=== PATIENT | male | born 1985 | race Caucasian/White ===

== ENCOUNTER 2022-02-02 15:49 | Emergency (ER) | payer OTHER, SELFPAY ==
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
[2022-02-02 15:53] VITALS: BP 150/82; PULSE 92; RESP 18; TEMP 36.7; O2SAT 100
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
== END 2022-02-02 18:25 | disposition home or self-care (01) ==
LOC: ANHED 18:01
PROVIDERS: Emergency Provider Nurse Practitioner Family; PCP Family Medicine
DX: S16.1XXA Strain of muscle, fascia and tendon at neck level, initial encounter (principal); S39.012A Strain of muscle, fascia and tendon of lower back, initial encounter; Z90.49 Acquired absence of other specified parts of digestive tract; V43.52XA Car driver injured in collision with other type car in traffic accident, initial encounter
CPT/HCPCS: 72040; 72100; 99283

== ENCOUNTER 2025-01-21 11:59 | Outpatient (CLI) | payer OTHER, SELFPAY ==
--- NOTE | ~2025-01-21 | XR_ITS ---
Thoracic spine: Clinical Indication: Back pain AP and lateral views were performed. No fracture is seen. There is normal alignment of the vertebrae. The intervertebral disc spaces appe ar normal. Paravertebral soft tissues appear normal. Impression: No significant abnormalities noted. Reviewed, dictated and finalized at [facility]. Impression: No significant abnormalities noted.
== END 2025-01-21 12:00 | disposition home or self-care (01) ==
LOC: GOSHIMG 12:00
PROVIDERS: PCP Nurse Practitioner Family; Visit Provider Nurse Practitioner Family
DX: M54.9 Dorsalgia, unspecified (principal)
CPT/HCPCS: 72072

== ENCOUNTER 2025-07-31 19:38 | Emergency (ER) | payer OTHER, SELFPAY ==
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
--- OUTSIDE RECORDS SUMMARY | 2025-07-29 16:00 | XMS_ITS | Encounter Summary ---
Author Organization [facility] Healthcare Address [address] [place] [address] Care Team Providers Care Benefits Advisor Name Role Phone Mack Stein MD Primary Care Provider [phone] Louie Islas DPT Unavailable [phone] Reason for Referral * Consultation (Routine) - Authorized Specialty Diagnoses / Procedures Referred By Macey neal Referred To Contact Diagnoses Polyarthralgia Judie Stein MD PhD [address] [facility] [address] [place] [address] Phone: tel: fax: [facility] Medicine Pain Management [address] [place] [address] Phone: tel: fax: Referral ID Status Reason Start Date Expiration Date Visits Requested Visits Authorized [id number] Authorized Specialty Services Required 07/29/2025 01/28/2027 1 1 Question Answer Please select the performing region: [facility] (All Locations) [[id number]] Please select the performing department: [facility] [[id number]] # of visits: [address] Huerta * Diagnostic Imaging (Routine) - Pending Review Specialty Diagnoses / Procedures Referred By Macey t Referred To Contact Diagnoses Chronic pain of left knee Procedures Imaging Genicular Nerve Block (958[address]) Judie Stein MD PhD [address] [place] [address] Phone: tel: fax: [facility] [address] [facility] [place] [address] Referral ID Status Reason Start Date Expiration Date V isits Requested Visits Authorized [id number] Pending Review 07/29/2025 08/28/2026 1 1 Reason for Visit * Reason Comments Follow-up Generalized Body Aches Encounter Details Date Type Department Care Team (Late st Contact Info) Description 07/29/2025 4:00 PM CDT - 07/29/2025 11:59 PM CDT Hospital Encounter [facility] at the [facility] Advanced Medicine [address] [facility] [address] [place], [place] [id number] Judie Stein MD PhD [address] [place] [address] Chronic pain of left knee (Primary Dx); Polyarthralgia; Other chronic pain Discharge Disposition: Discharge to home or self care Social History Tobacco Use Types Packs/Day Years Used Date Smoking Tobacco: Never Passive Smoke Exposure: Past Smokeless Tobacco: Never Tobacco Cessation:Counseling Given: Not Answered Alcohol Use Standard Drinks/Week Comments Yes 0 (1 standard drink = 0.6 oz pur e alcohol) rarely Overall Financial Resource Strain (CARDIA) Answe r Date Recorded How hard is it for you to pa y for the very basics like food, housing, medical care, and heating? Patient declined 08/03/2020 Hunger Vital Sign Answer Date Recorded Within the past 12 months, y ou worried that your food would run out before you got the money to buy more. Never true 07/10/20 24 Within the past 12 months, t he food you bought just didn't last and you didn't have money to get more. Never true 07/10/2024 PRAPARE - Transportation Answer Date Re corded In the past 12 months, has l ack of transportation kept you from medical appointments or from getting medications? Patient declined 08/03/2020 In the past 12 months, has l ack of transportation kept you from meetings, work, or from getting things needed for daily living? Patient declined 08/03/2020 AUDIT-C Answer Date Recorded Q1: How often do you have a drink containing alc ohol? Monthly or less 07/29/2025 Q2: How many drinks containi ng alcohol do you have on a typical day when you are drinking? 1 or 2 07/29/2025 Q3: How often do you have si x or more drinks on one occasion? Never 07/29/2025 Personal Safety Answer Date Recorded Have you ever been in or are you currently in a harmful physical or emotional relationship or is someone making you feel afraid or unsafe? 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 Not on file Not on file Not on file documented as of this encounter Last Filed Vital Signs Vital Sign Reading Time Taken Comments Blood Pressure 118/79 07/29/2025 4:06 PM CDT 88 Pulse 91 07/29/2025 4:06 PM CDT Temperature 36.6 C (97.8 F) 07/29/2025 4:06 PM CDT Respiratory Rate 18 07/29/2025 4:06 PM CDT Oxygen Saturation 97% 07/29/2025 4:06 PM CDT ra Inhaled Oxygen Concentration - - Weight 88.5 kg (195 lb) 07/29/2025 4:06 PM CDT Height 188 cm (6' 2) 07/29/2025 4:06 PM CDT Body Mass Index 25.04 07/29/2025 4:06 PM CDT documented in this encounter Functional Status * AUDIT-C Score Answer Date of Assessment Author 1 07/29/2025 4:16 PM CDT Adry Peralta RN * Question Answer Date of Assessment Author Q1: How often do you have a drink containing alcohol? Monthly or less 07/29/2025 4:16 PM CDT Christy Peralta RN Q2: How many drinks containing alcohol do you have on a typical day when you are drinking? 1 or 2 07/29/2025 4:16 PM CDT Christy Peralta RN Q3: How often do you have six or more drinks on one occasion? Never 07/29/2025 4:16 PM CDT Christy Peralta RN documented as of this encounter Discharge Instructions * Patient Instructions* Estefany Mehta RN - 07/29/2025 4:00 PM CDT PAIN MANAGEMENT CENTER ([facility]) DISCHARGE INSTRUCTIONS MEDICATIONS: [x] Continue your current home medications Start: tramadol 50mg [x] Notify your pharmacy for refill(s) 7 days before you are out of your medication. [x] Opioid (Narcotic) Agreement signed and patient received copy. [x] Side Effects of Opioid Medications given to patient FOLLOW UP APPOINTMENTS: [x] Procedure at your next visit : left genicular nerve block INSTRUCTIONS before your next procedure: [x] See [facility] Pre-Procedure Information Sheet [x] Pre Procedure instructions will be sent through [employer] or by phone two working days prior to procedure. *Need help with [employer]? Call [phone]. Patient provided information and repeated back with understanding. If you need to reach us: For any questions about your procedure, please call the Pain Management Center [phone] (M-F) (8am-4pm) If you need urgent attention after 5 pm and weekends: Call the [facility] Mig Welder at [phone] and ask for the Pain Service doctor director of instruction. GENICULAR NERVE BLOCK PAIN MANAGEMENT CENTER PATIENT EDUCATION PRE-PROCEDURE INFORMATION SHEET What is a Genicular Nerve Block? A genicular nerve block is a diagnotic test. Nerve branches around you knee consist of 3 genicular nerves - Superior Medial, Superior Lateral and Inferior Medial. Numbing medicine is used to temporarily block the painful nerve signals in the knee. If you experience effective pain relief following the nerve block you may be a candidate for a Genicular Radiofrequency Ablation to treat your chronic knee pain due to osteoarthritis or pain after knee surgery. What should I do before my procedure? Let your doctor or nurse know if you are on any blood thinners (such as Aggrenox, Coumadin, Effient, Eliquis, Lovenox, Plavix, Pletal, Pradaxa,Ticlid or Xarelto). You may eat, drink and take your medications as usual. Bring someone with you to drive you home. An X-ray machine will be used during the procedure. Let your doctor or nurse know if there is any chance you may be . What should I expect during my procedure? Your procedure will be done on an x-ray table while you are awake. A geodetic technician will be taking x-rays. A nurse will monitor your blood pressure, breathing and heart rate. Your doctor will use a local anesthetic to numb the area. What should I expect after my procedure? A nurse will monitor you for a brief time in the recovery area. You may experience dizziness, numbness or weakness in you affected leg. These symptoms are the result of the numbing medicine and generally wears off in 6-8 hours and are almost always gone by the next morning. You may feel sore at the injection site. You will keep a pain diary for 8 hours and will be called the next business day for your pain diaryscores. Your doctor uses these scores to determine whether or not a Cooled Radiofrequency Ablation would possibly be helpful for you knee pain If you have any questions before your procedure, please call the Pain Management Center at and ask to speak to a nurse. * Attachments The following attachments cannot be sent through Care Everywhere. * Tramadol (By mouth) (Tajik) documented in this encounter Medications at Time of Discharge cefdinir (OMNICEF) 300 mg capsule Take 1 capsule (300 mg total) by mouth 2 (two) times a day 60 capsule 3 12/24/2024 colestipoL (COLESTID) 1 gram tabletIndications: Other ulcerative colitis with other complication Take 1-4 tablets by mouth 30 minutes before eating (with meals) and at bedtime. (Max 16 tablets/day). 1440 tablet 2 12/24/2024 diphenoxylate-atro pine (LOMOTIL) 2.5-0.025 mg per tabletIndications: diarrhea Take 1 tablet by mouth 4 (four) times a day as needed for diarrhea 120 tablet 5 04/10/2025 HYDROcodone-acetam inophen (NORCO) 5-325 mg per tabletIndications: Pain Take 1 tablet by mouth every 6 (six) hours as needed for pain for up to 10 doses 10 tablet 01/13/2025 ketorolac (TORADOL) 10 mg tablet Take 1 tablet (10 mg total) by mouth every 6 (six) hours as needed for pain 20 tablet 01/13/2025 polyethylene glycol 236-22.74-6.74 -5.86 gram solution 06/23/2025 pregabalin (LYRICA) 75 mg capsule Take 1 capsule (75 mg total) by mouth 2 (two) times a day 60 capsule 5 06/30/2025 traMADoL (ULTRAM) 50 mg tablet Take 1 tablet (50 mg total) by mouth every 6 (six) hours 120 tablet 07/29/2025 5 documented as of this encounter Ordered Prescriptions Prescription Sig Dispense Quantity Refills Last Filled Start Date End Date traMADoL (ULTRAM) 50 mg tablet Take 1 tablet (50 mg total) by mouth every 6 (six) hours 120 tablet 07/29/2025 08/28/2025 documented in this encounter Discharge Disposition Disposition Code Departure Means Destination Discharge to home or self care documented in this encounter Progress Notes * Judie Stein MD PhD - 07/29/2025 4:00 PM CDT Pain Management Progress Note Patient Name: Carlton Gallo : 1985 Today's Date: 07/29/2025 PCP: Mack Stein MD Referring: Leena Bergeron MD Chief Complaint Patient presents with Follow-up Generalized Body Aches INTERVAL HISTORY (07/29/2025): Mr. Carlton Gallo returns to care for follow-up of polyarthralgia. Last visit (09/24/24), we did the following: - Procedures: repeat L genicular NB - not approved by [facility] - Imaging: MRI L Knee - not seen Major events since last visit: multiple PT visits for polyarthralgia, minimal improvement. Recentlystarted pelvic floor PT. Pain remains in multiple joints, currently worst in the right wrist, left hip and knee. He is working out which sometimes helps and sometimes exacerbates it and makes him unable to do the things thathe needs to do to take care of his children. It remains overall the same pain that he has had for 15 years. He does not like taking medication but he is desperate. Has stopped taking prior meds because they were not helpful at all. He denies any side effects to current pain medications. He reports no new numbness, weakness, bowel/bladder incontinence except symptoms described above. Today, his pain assessment is as described below: Pain Assessment Pain Score: 6 Patient's Stated Pain Goal: 2 Pain Location: Generalized (worst pain is in right wrist and left hip and knee) Pain Radiating Towards: generalized joint pain Pain Descriptors: Aching, Throbbing, Sharp, Stabbing Pain Frequency: Constant/continuous Pain Onset: Ongoing Modified Oswestry Modified Oswestry Low Back Pain Score: 17 Percentage: 34 Patient History: HPI - HISTORICAL INFORMATION:(INITIAL VISIT 07/28/2021): Mr. Carlton Gallo was referred by Angelica Thornton* for consultation regarding treatment recommendations for management of multiple joint pain d/t avascular necrosis and migraine w/ hx of UC. Mr. Carlton Gallo is a 39 y.o. male with a PMH significant for ulcerative colitis who presents with chronic migraines and multiple joint pain d/t avascular necrosis (all joints, knees/hips/wrist more than others.) He states the pain started worsening since 2019. He states that the pain has been progressively worsening since then. Patient had a colectomy last year and thought that the pain would improve afterwards, but it did not.Currently, the pain is constant, throbbing, shooting, aching, tiring-exhausting and described as below. The pain increases with exercise, movement, lifting, bending, temperature change, and decreases with rest and medications. He rates his pain at 5/10 on average, ran ging from 4-8/10. He reports no new numbness, weakness, bowel/bladder incontinence. He cannot exercise and complete more physically active ADLs without difficulty due to increased pain. Patient's main goal is to be able to be physically active to interact and play with his young daughter. Patient does not want to take anymore steroids than he needs to. Therapeutic modalities to date include: medications Physical therapy: Yes, past - no improvement. Currently doing PT as of 08/25/22 Home exercise program: Yes, past - injured shoulder weight training and then stopped lifting weights due to COVID Injections: a couple years ago GH steroid injection L shoulder Surgery: No joint surgeries. Total colectomy Other: Last visit: INTERVAL HISTORY (09/24/2024): Mr. Carlton Gallo returns to care for follow-up of multiple joint pain. Last visit (07/10/24), we did the following: - Medications: LDN 4.5 - not helpful - Referrals: [facility] - evaluated yesterday for the first time, note not finished Hip has particularly been bothering him more in the past few weeks. Stretching is painful States that he was told one leg was longer and he received a lift for his left shoe. Also received an SI belt because pressure on hip more helpful. Of note, he mentions that the diagnostic genicular block basically eliminated the sharp knee pain that happens every time he steps and really limits his activity. He stated <80% relief only because it did not relieve the more general aching pain. He denies any side effects to current pain medications. He reports no new numbness, weakness, bowel/bladder incontinence except symptoms described above. Today, his pain assessment is as described below: Pain Assessment Pain Score: 5 - Moderate pain Pain Location: (knees, hips, wrist, left shoulder) Pain Radiating Towards: generalized joint pain Pain Descriptors: Aching Pain Frequency: Constant/continuous Pain Onset: Ongoing Pain Exacerbated by: walking, lifting Modified Oswestry Modified Oswestry Low Back Pain Score: 23 Percentage: 46 Current Pain Medications: Pain Medications gabapentin (NEURONTIN) 100 mg capsule Take 1 capsule (100 mg total) by mouth 3 (three) times a day for 7 days HYDROcodone-acetaminophen (NORCO) 5-325 mg per tablet Take 1 tablet by mouth every 6 (six) hours asneeded for pain for up to 10 doses ketorolac (TORADOL) 10 mg tablet Take 1 tablet (10 mg total) by mouth every 6 (six) hours as neededfor pain pregabalin (LYRICA) 75 mg capsule Take 1 capsule (75 mg total) by mouth 2 (two) times a day traMADoL (ULTRAM) 50 mg tablet Take 1 tablet (50 mg total) by mouth every 6 (six) hours Pain Medication History: Gabapentinoids Y Comments Anticonvulsants Y Comments Opioids Y Comments Gabapentin (Neurontin) [x] No help Carbamazepine (Tegretol) [] Tramadol (Ultram) [x] Helpful Pregabalin (Lyrica) [x] Not helping, stopped Oxcarbazepine (Trileptal) [] Tapentadol (Nucynta) [] TCA: Topiramate (Topamax) [] Buprenorphine (Belbuca, Butrans) [] Nortriptyline (Pamelor) [x] Just started 1 week prior to initial visit Lamotrigine (Lamictal) [] Oxycodone/APAP (Percocet) [] Amitriptyline (Elavil) [] Levetiracetam (Keppra) [] Hydrocodone/APAP (Nogales) [x] Helpful Desipramine (Norpramin) [] Valproate (Depakote) [] Codeine/APAP (Tylenol#3/4) [] Imipramine (Tofranil) [] Mexiletine (Mexitil) [] Methadone [] SNRI: Muscle Relaxants: Morphine (MSIR, MSER) [] Duloxetine (Cymbalta) [x] Rx for depression, unsure if helped at all Rx by GI 02/2024, 30 mg x1 week, then 60 mg daily Cyclobenzaprine (Flexeril) [x] No help NSAIDS: Venlafaxine (Effexor) [] Methocarbamol (Robaxin) [] Ibuprofen (Advil, Motrin) [x] Caused GI upset Milnacipran (Savella) [] Tizanidine (Zanaflex) [] Naproxen (Aleve) [x] Caused GI upset Others: Baclofen (Lioresal) [] Meloxicam (Mobic) [x] [x] Caused GI upset Acetaminophen (Tylenol) [x] No improvement Metaxalone (Skelaxin) [] Diclofenac (Voltaren) [] Low-dose naltrexone [x] Not helpful Carisoprodol (Soma) [] Indomethacin (Tivorbex) [] Topical lidocaine [] Diazepam (Valium) [x] No help Nabumetone (Relafen) [x] Caused GI upset Diclofenac gel (Voltaren) [] Etodolac (Lodine) [] Other [x] Budesonide Rizatriptan - helps with migraines Celecoxib (Celebrex) [x] No help PAIN MANAGEMENT PROCEDURE HISTORY: 09/01/2022: L genicular block (basically eliminated the sharp knee pain that happens every time he steps and really limits his activity) 10/20/2021: lidocaine infusion (no benefit) IMAGING/RESULTS: DEXA 02/01/2024: SUMMARY: Bone mineral density shows evidence of low bone mass (Z-score<-2.0). Of note, BMD alonedoes not define osteoporosis in a man under 50, but further evaluation is recommended. There has been no significant changes in bone density since previous measurement. The lumbar spine Trabecular Bone Score is 1.269 which suggests partially degraded bone microarchitecture compared to the general population. XR R foot 06/19/22: No acute osseous abnormality XR HIPS BILATERAL 3 OR 4 VIEWS W PELVIS 08/03/2020 HISTORY: Bilateral hip pain FINDINGS: 4 radiographs of bilateral hips and pelvis are submitted for interpretation with comparison made to radiographs dated 02/17/2013. There is serpiginous sclerosis within both femoral heads in keeping with avascular necrosis with mild articular surface collapse of the right femoral head. Alignment is normal. Joint spaces are maintained. No acute fracture. Suture material from bowel resection noted in pelvis. IMPRESSION: Avascular necrosis of both femoral heads with mild articular surface collapse on the right XR B knee 08/03/2020 IMPRESSION: 1. Avascular necrosis involving the right lateral femoral condyle and the left medial and lateral femoral condyles with new flattening of the articular surfaces 2. Large regions of avascular necrosis in the distal left femur and proximal left tibia, also seen on prior MRI 3. New nondisplaced osteochondral lesion of the left lateral femoral condyle, which can be further evaluated with MRI Past Surgical History: Procedure Laterality Date COLON SURGERY proctocolectomy + j-pouch ILEOSTOMY CLOSURE 2018 LAPAROSCOPIC ASSISSTED TOTAL COLECTOMY W/ J-POUCH 2018 3 stage Past Medical History: Diagnosis Date Anemia Anxiety and depression Autoimmune disease Avascular necrosis (HCC) Chronic left shoulder pain Migraines Peptic ulcer Ulcerative colitis, chronic (HCC) Current Outpatient Medications on File Prior to Encounter Medication Sig Dispense Refill cefdinir (OMNICEF) 300 mg capsule Take 1 capsule (300 mg total) by mouth 2 (two) times a day 60 capsule 3 colestipoL (COLESTID) 1 gram tablet Take 1-4 tablets by mouth 30 minutes before eating (with meals)and at bedtime. (Max 16 tablets/day). 1440 tablet 2 diphenoxylate-atropine (LOMOTIL) 2.5-0.025 mg per tablet Take 1 tablet by mouth 4 (four) times a day as needed for diarrhea 120 tablet 5 gabapentin (NEURONTIN) 100 mg capsule Take 1 capsule (100 mg total) by mouth 3 (three) times a day for 7 days (Patient not taking: Reported on 07/29/2025) 21 capsule 0 HYDROcodone-acetaminophen (NORCO) 5-325 mg per tablet Take 1 tablet by mouth every 6 (six) hours asneeded for pain for up to 10 doses (Patient not taking: Reported on 07/29/2025) 10 tablet 0 ketorolac (TORADOL) 10 mg tablet Take 1 tablet (10 mg total) by mouth every 6 (six) hours as neededfor pain (Patient not taking: Reported on 07/29/2025) 20 tablet 0 polyethylene glycol 236-22.74-6.74 -5.86 gram solution (Patient not taking: Reported on 07/29/2025) pregabalin (LYRICA) 75 mg capsule Take 1 capsule (75 mg total) by mouth 2 (two) times a day (Patient not taking: Reported on 07/29/2025) 60 capsule 5 No current facility-administered medications on file prior to encounter. Allergies Allergen Reactions Relafen [Nabumetone] Stomach upset Severe abdominal pain Social History Tobacco Use Smoking status: Never Passive exposure: Past Smokeless tobacco: Never Substance and Sexual Activity Drug use: Never Sexual activity: Defer Review of Systems REVIEW OF SYSTEMS: As per patient questionnaire and history above. Otherwise negative. Objective LABS: Lab Results Component Value Date WBC 7.5 11/30/2023 HGB 15.7 11/30/2023 HCT 45.0 11/30/2023 MCV 86.9 11/30/2023 LABPLAT 319 11/30/2023 Lab Results Component Value Date CREATININE 1.03 02/26/2024 CrCl cannot be calculated (Patient's most recent lab result is older than the maximum 90 days allowed.). PHYSICAL EXAM: Vitals BP 118/79 (BP Location: Right arm, Patient Position: Sitting) Pulse 91 Temp 97.8 ??F (36.6 ??C) (Temporal) Resp 18 Ht 188 cm (6' 2) Wt 88.5 kg (195 lb) SpO2 97% BMI 25.04 kg/m?? CONSTITUTIONAL: General appearance normal, nutrition normal, no deformities & good grooming. EYES: Normal conjunctivae/lids NECK:Normal inspection and palpation. CARDIOVASCULAR: No extremity edema or varicosities. RESPIRATORY:Normal effort CHEST:Symmetric. GASTROINTESTINAL: Normal abdomen SKIN: No rashes or lesions in the four extremities and back. PSYCHIATRIC: Oriented X3, memory intact, and alert. Normal mood and affect. Normal insight and judgement. NEUROLOGIC: CN III-XII grossly intact MUSCULOSKELETAL: Normal bulk and tone ASSESSMENT: The above note documents my personal evaluation of this patient. In addition, I have reviewed and confirmed with the patient and nurse the supportive information documented in today's scanned PatientHealth Questionnaire and Office Note. Encounter Diagnoses Name Primary? Chronic pain of left knee Yes Polyarthralgia Other chronic pain 40 y.o. with multiple joint pain and avascular necrosis / osteopenia secondary to chronic steroid use for ulcerative colitis. Left knee pain has been predominant, but genicular nerve RFA was not approved last year by his insurance. He also had some characteristics of centralized pain, but unfortunat breana failed a trial of LDN. He has also failed numerous neuropathic pain medications, muscle relaxants, cannot take NSAIDs, and GI meds are not helping with the pain. He has multiple areas of pain; the above listed are the worst but the generalized pain is also debilitating and on certain days will keep him from doing important tasks like taking care of his children. 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 He was able to walk much more quickly and comfortably after the genicular block (08/2022) without sharp pain. It has been 3 years since his diagnostic left genicular nerve block, and we will repeat. MULTIDISCIPLINARY PAIN MANAGEMENT PLAN: 1. Interventions: Given signs and symptoms of left genicular neuralgia, we will plan diagnostic left genicular nerve block at future visit. 2. Medications: Opioids: Tramadol 50mg QID PRN. Opioid contract and UDS today Adjuvants: No changes to current regimen. 3. Diagnostics: No further imaging needed at this current time. 4. Referral: No referrals needed at this time. PT: Multiple visits over the past year, including recently starting pelvic floor PT. OVN reviewed for today's encounter. Psychology: He saw Dr. Huerta in 2020. New referral placed today. 5. Follow-up: At the next possible visit for the procedure listed above. 6. Other: Discuss with occupational health - reasonable to get a scooter. Judie Stein MD PhD Water Treatment Specialist Department of Anesthesiology, Division of Pain Management [facility], [facility] 07/29/2025 Orders Placed This Encounter Procedures Imaging Genicular Nerve Block (81078) Pain Management Profile Drugs of Abuse Screen, Urine with Reflex Confirmation Targeted Opioid Screen, Ur Ambulatory referral to Psychology documented in this encounter Nursing Notes * Estefany Mehta, RN - 07/29/2025 4:00 PM CDT Level 4 Escorted patient to exam room. Obtained vital signs. Reviewed patient's allergies and current medications. Obtained and verified patient's complex medical/surgical history. Confirmed the reason for visit with the patient. Obtained the following screening assessments: [x] Modified Oswestry Low Back Pain Questionnaire [] PMC Intake Questionnaire [x] PMC Follow up Questionnaire [] Fall Risk Assessment ([place]) [] Depression/Anxiety Assessment (GAD7, PHQ-9, [place] Suicide, [place] Depression) [] Disability Scale [] CAGE [] SOAPP-R Additional tasks included: [] Random medication adherence check (pill verification by two nurses) [] Work/school note written [] Wound/skin check/dressing change [] Pain assessment for more than one site [] Coordination of a specialty referral or imaging study (stat MRI for same day) [] Anticoagulant therapy coordination on day of visit [] Monitoring or assistance in patient physical exam or assessment [] Expanded evaluation and/or monitoring of vital signs [] Coordination of multiple or complex referrals or imaging studies [] Administration of medication by the clinical staff [x] Specimen/lab preparation and collection (urine drug screen) [x] Discharge Education Provided Vital Signs Temp: 97.8 ??F (36.6 ??C) Temp src: Temporal Pulse: 91 Resp: 18 BP: 118/79 (88) BP Location: Right arm Patient Position: Sitting SpO2: 97 % (ra) Post-visit transport confirmed with the patient. Total time spent for patient care, education, and care coordination was approximately 31-40 minutes. * Estefany Mehta RN - 07/29/2025 4:00 PM CDT 07/29/25 5:09 PM Urine Drug Screen obtained: [x] [facility] lab Name and verified. OA signed and copy offered to patient. documented in this encounter Plan of Treatment Scheduled Orders Name Type Priority Associated Diagnoses Orde r Schedule Imaging Genicular Nerve Block (69474) Imaging Schedule Routine, Read Routine (OP Routine) Chronic pain of left knee Expected: 07/29/2025, Expires: 07/29/2026 Pain Management Profile Lab Routine Other chronic pain Expected: 07/29/2025, Expires: 07/29/2026 Scheduled Referrals Name Type Priority Associated Diagnoses Order Schedule Ambulatory referral to Psychology Outpatient Referral Routine Polyarthralgia Expected: 08/12/2025 (Approximate), Expires: 07/29/2026 documented as of this encounter Goals Goal Patient Goal Type Associated Problems Recent Progress Patient-Stated? Author CCM Chronic Pain Care Plan Chronic Care Management No change(07/29 4:15 PM CDT) No Yocasta Simons NP Note: Problem: Chronic Pain Goals: 1. Minimize further functional decline 2. Maximize quality of life 3. Control pain Strategies: - Activity/exercise program recommendation - Conservative stepwise pain medicine strategy with multi-disciplinary approach - Recommend healthy lifestyle strategies and compensatory methods as needed documented as of this encounter Procedures Procedure Name Priority Date/Time Associated Diagnosis Comments TARGET OPIOID SCREEN BY PRIVACY SPECIALIST Routine 07/29/2025 5:15 PM CDT DRUGS OF ABUSE SCREEN, URINE WITH REFLEX CONFIRMATION Routine 07/29/2025 5:15 PM CDT documented in this encounter Results * Targeted Opioid Screen, Ur (07/29/2025 5:15 PM CDT) [facility] Pain mgt 6-Acetylmorphine, Ur Not Detected CutOff 10 ng/mL Pain mgt Buprenorphine, Ur Not Detected CutOff 5 ng/mL [facility] Pain mgt Buprenorphine metabolite (Norbuprenorphine), Ur Not Detected CutOff 5 ng/mL [facility] Pain mgt Codeine, Ur Not Detected CutOff 25 ng/mL [facility] Pain mgt Hydrocodone, Ur Not Detected CutOff 25 ng/mL [facility] Pain mgt Hydromorphone, Ur Not Detected CutOff 25 ng/mL [facility] Pain mgt Methadone, Ur Not Detected CutOff 25 ng/mL [facility] Pain mgt Methadone Metabolite (EDDP), Ur Not Detected CutOff 25 ng/mL [facility] Pain mgt Morphine, Ur Not Detected CutOff 25 ng/mL [facility] Pain mgt Oxycodone, Ur Not Detected CutOff 25 ng/mL [facility] Pain mgt Oxymorphone, Ur Not Detected CutOff 25 ng/mL [facility] Pain mgt Tapentadol, Ur Not Detected CutOff 25 ng/mL [facility] Pain mgt Tramadol, Ur Not Detected CutOff 25 ng/mL [facility] Pain mgt Tramadol metabolite (O-desmethyltramado l), Ur Not Detected CutOff 25 ng/mL [facility] Comment: Interpretive Data This test only detects free, unconjugated drugs. The absence of expected drug(s) and/or metabolite(s) may indicate non-compliance, inappropriate timing of specimen collection relative to the time of dosing, variability in absorption, diluted or adulterated urine, or other testing limitations. Questions concerning interpretation should be directed to the laboratory. The results of this test are to be used only for medical purposes and are not suitable for forensic use. This test was developed and its performance characteristics determined by [facility]. It has not been cleared or approved by the U.S. Food and Drug Administration. Current interpretive data was last revised 19. Pain mgt Naloxone, ur Not Detected cutoff 20 ng/ml [facility] Urine 07/29/2025 5:15 PM CDT 07/29/2025 7:32 PM CDT Judie Stein MD PhD LAB URINE ORDERABLES F inal Result [facility] [address] [facility] [place] [address] * Drugs of Abuse Screen, Urine with Reflex Confirmation (07/29/2025 5:15 PM CDT) Pathologist [facility] Amphetamine, ur Not Detected CutOff 500ng/mL Comment: Interpretive Data - Amphetamines: Samples containing greater than 500 ng/mL d-methamphetamine or other cross-reacting amphetamine compounds are reported as positive. Amphetamine immunoassays are subject to significant false positive rates due to cross-reactivity of non-amphetamine drugs. Confirmatory testing required for definitive results. Current Interpretive Data was last reviewed 2023. Barbiturates, ur Not Detected CutOff 200ng/mL [facility] Comment: Interpretive Data - Barbiturates: Samples containing greater than 200 ng/mL secobarbital or other cross-reacting barbiturate compounds are reported as positive. False positive and false negative results are possible. Confirmatory testing required for definitive results. Current Interpretive Data was last reviewed 2023. Benzodiazepines, ur Not Detected CutOff 100ng/mL [facility] Comment: Interpretive Data - Benzodiazepines: Samples containing greater than 100 ng/mL nordiazepam or other cross-reacting compounds are reported as positive. False positive and false negative results are possible. Confirmatory testing required for definitive results. Current Interpretive Data was last reviewed 2023. Cannabinoids, ur Not Detected CutOff 50 ng/mL [facility] Comment: Interpretive Data - Cannabinoids: Samples containing greater than 50 ng/mL delta-9 THC -COOH or other cross- reacting compounds are reported as positive. False positive and false negative results are possible. Confirmatory testing required for definitive results. Current Interpretive Data was last reviewed 2023. Cocaine, ur Not Detected CutOff 150ng/mL [facility] Comment: Interpretive Data - Cocaine: Samples containing greater than 150 ng/mL benzoylecgonine or other cross- reacting compounds are reported as positive. False positive and false negative results are possible. Confirmatory testing required for definitive results. Current Interpretive Data was last reviewed 2023. Fentanyl, Ur Not Detected CutOff 5 ng/mL [facility] Comment: Interpretive Data - Fentanyl: Samples containing greater than 5 ng/mL norfentanyl, fentanyl, or other cross-reacting fentanyl compounds are reported as positive. False positive and false negative results are possible. Confirmatory testing required for definitive results. Current Interpretive Data was last reviewed 2024. Methadone, ur Not Detected CutOff 300ng/mL [facility] Comment: Interpretive Data - Methadone: Samples containing greater than 300 ng/mL d,l-methadone or other cross-reacting compounds are reported as positive. False positive and false negative results are possible. Confirmatory testing required for definitive results. Current Interpretive Data was last reviewed 2023. Opiates, ur Not Detected CutOff 300ng/mL [facility] Comment: Interpretive Data - Opiates: Samples containing greater than 300 ng/mL morphine or other cross-reacting compounds are reported as positive. False positive and false negative results are possible. Confirmatory testing required for definitive results. Current Interpretive Data was last reviewed 2023. Oxycodone, ur Not Detected CutOff 100ng/mL [facility] Comment: Interpretive Data - Oxycodone: Samples containing greater than 100 ng/mL oxycodone or other cross-reacting compounds are reported as positive. False positive and false negative results are possible. Confirmatory testing required for definitive results. Current Interpretive Data was last reviewed 2023. Phencyclidine, ur Not Detected CutOff 25 ng/mL [facility] Comment: Interpretive Data - Phencyclidine: Samples containing greater than 25 ng/mL phencyclidine or other cross-reacting compounds are reported as positive. False positive and false negative results are possible. Confirmatory testing required for definitive results. Current Interpretive Data was last reviewed 2023. Urine Creatinine 142 mg/dL [facility] Comment: Interpretive Data Urine Creatinine: < 10 mg/dL is extremely dilute = or > 10 but < 20 mg/dL is dilute = or > 20 mg/dL is normal Current Interpretive Data was last revised on 2018. Urine 07/29/2025 5:15 PM CDT 07/29/2025 7:32 PM CDT Narrative [facility] - 07/29/2025 8:38 PM CDT Drug Screening is performed by immunoassay for medical purposes. If positive, confirmation testing will be performed for amphetamines, benzodiazepines, cocaine, fentanyl, methadone, opiates, oxycodone, and phencyclidine. Judie Stein MD PhD LAB URINE ORDERABLES F inal Result [facility] Department [place] [address] documented in this encounter Visit Diagnoses Diagnosis Chronic pain of left knee- Primary Polyarthralgia Pain in joint, multiple sites Other chronic pain documented in this encounter Care Teams Benefits Advisor Relationship Specialty Start Date End Date Mack Stein MD PCP - General 01/18/12 Louie Islas, MAYO [address] [facility] [address] [place] [address] Physical Therapist Physical Therapy 04/28/22 documented as of this encounter
--- NOTE | ~2025-07-31 | XR_ITS ---
XR hand LT min 3V 07/31/2025 20:44 INDICATION: Left hand pain. Laceration to finger. PROCEDURE: 3 views left hand COMPARISON: No prior studies for comparison. FINDINGS: Fracture, dislocation or subluxation is not identified. The soft tissues appear within normal limits. No foreign bodies are identified. IMPRESSION: 1: NO ACUTE BONE OR JOINT ABNORMALITY IDENTIFIED. Reviewed, dictated and finalized at location O.
--- OUTSIDE RECORDS SUMMARY | 2025-07-31 19:40 | XMS_ITS | Encounter Summary ---
Author Organization [facility] Healthcare Address [address] [place] [address] Care Team Providers Care Medical Records Auditor Name Role Phone Mack Stein MD Primary Care Provider + [phone] Louie Islas DPT Unavailable [phone] Encounter Details Date Type Department Care Team (Late st Contact Info) Description 10/20/2021 Telephone [facility] [address] [facility] [address] [place], [place] [id number] Judie Stein MD PhD [address] [place] [address] Social History Tobacco Use Types Packs/Day Years Used Date Smoking Tobacco: Never Smokeless Tobacco: Never Alcohol Use Standard Drinks/Week Comments Yes 0 (1 standard drink = 0.6 oz pur e alcohol) rarely AUDIT-C Answer Date Recorded Q1: How often do you have a drink containing alc ohol? Monthly or less 10/20/2021 Q2: How many drinks containi ng alcohol do you have on a typical day when you are drinking? 1 or 2 10/20/2021 Q3: How often do you have si x or more drinks on one occasion? Never 10/20/2021 Overall Financial Resource Strain (CARDIA) Answe r Date Recorded How hard is it for you to pa y for the very basics like food, housing, medical care, and heating? Patient declined 08/03/2020 Hunger Vital Sign Answer Date Recorded Within the past 12 months, y ou worried that your food would run out before you got the money to buy more. Patient declined Within the past 12 months, t he food you bought just didn't last and you didn't have money to get more. Patient declined PRAPARE - Transportation Answer Date Re corded In the past 12 months, has l ack of transportation kept you from medical appointments or from getting medications? Patient declined 08/03/2020 In the past 12 months, has l ack of transportation kept you from meetings, work, or from getting things needed for daily living? 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
--- OUTSIDE RECORDS SUMMARY | 2025-07-31 19:40 | XMS_ITS | Encounter Summary ---
Author Organization [facility] Address [address] [place] [address] Phone Care Team Providers Care Academic Support Specialist Name Role Phone Mack Stein MD Primary Care Provider + [phone] Louie Islas DPT Unavailable [phone] Encounter Details Date Type Department Care Team (Late st Contact Info) Description 07/09/2025 Results Follow-Up [facility] Medicine Gastroenterology [address] [facility] [address] [place] [address] Louis Perry MD [address] [place] [address] Surgical pathology Social History Tobacco Use Types Packs/Day Years Used Date Smoking Tobacco: Never Passive Smoke Exposure: Past Smokeless Tobacco: Never Alcohol Use Standard Drinks/Week [...] drink containing alc ohol? Monthly or less 07/08/2025 Q2: How many drinks containi ng alcohol do you have on a typical day when you are drinking? 1 or 2 07/08/2025 Frequency of Binge Drinking Not on file 01/2025 Personal Safety Answer Date Recorded Have you ever been in or are you currently in a harmful physical or emotional relationship or is someone making you feel afraid or unsafe? 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 I do not suspect this is what is driving his symptoms. Pre-pouch ileum biopsies reassuringly normal. I recommend repeat pouchoscopy likely in 2 years. Proceed with defecography as discussed. MAT?? MD ARON documented in this encounter Plan of Treatment Not on file documented as of this encounter Goals Goal Patient Goal Type Associated Problems Recent Progress Patient-Stated? Author CCM Chronic Pain Care Plan Chronic Care Management No change(07/29 4:15 PM CDT) No Yocasta Simons, RAYMOND Note: Problem: Chronic Pain Goals: 1. Minimize further functional decline 2. Maximize quality of life 3. Control pain Strategies: - Activity/exercise program recommendation - Conservative stepwise pain medicine strategy with multi-disciplinary approach - Recommend healthy lifestyle strategies and compensatory methods as needed documented as of this encounter Visit Diagnoses Not on filedocumented in this encounter Care Teams Academic Support Specialist Relationship Specialty Start Date End Date Mack Stein MD PCP - General 01/18/12 Louie Islas DPT [address] [facility] [address] [place] [id number] Physical Therapist Physical Therapy 04/28/22 documented as of this encounter
--- OUTSIDE RECORDS SUMMARY | 2025-07-31 19:40 | XMS_ITS | Patient Health Record ---
Author Organization [facility] Address [address] [place] [address] Care Team Providers Care Retail Special Event Associate Name Role Phone Allen Griffith Unavailable [phone] Reason For Referral No Information Medications Medication SIG (Take, Route, Frequency, Duration) Notes Start Date End Date Status Diphenoxylate-Atropine 2.5-0.025 MG Tablet Oral 05/28/2019 Active Xanax 0.5 MG Tablet Oral 05/28/2019 Active OXYCODONE 5 MG TABLET,ORAL ONLY (NOT FEEDING TUBES) *Reorder from Gift Card Combo for eRx and Interaction Alerts* 05/28/2019 Active QUEtiapine Fumarate 25 MG Tablet Oral 05/28/2019 Active buPROPion HCl ER (SR) 150 MG Tablet Extended Release 12 Hour Oral 05/28/2019 Active Escitalopram Oxalate 10 MG Tablet Oral 05/28/2019 Active Colestipol HCl 1 GM Tablet Oral 05/28/2019 Active Wellbutrin SR 150 MG Tablet Extended Release 12 Hour Oral 05/28/2019 Active busPIRone HCl 5 MG Tablet Oral 05/28/2019 Active Folic Acid 1 MG Tablet Oral 05/28/2019 Active Loperamide HCl 1 MG/5ML Liquid Oral 05/28/2019 Active Venofer 100 mg iron/5 mL Solution Intravenous *Pick strength-form from Gift Card Combo for eRX* 05/28/2019 Active Mirtazapine 15 MG Tablet Disintegrating Oral 05/28/2019 Active Rizatriptan Benzoate 10 MG Tablet Oral 05/28/2019 Active Entyvio 300 mg Solution Reconstituted Intravenous 05/28/2019 Activ e Ergocalciferol 1.25 MG (92679 UT) Capsule Oral 05/28/2019 Active CALCIUM 500 MG ( CALCIUM CARBONATE 1,250 MG) TABLET *Reorder from [employer] for eRx and Interaction Alerts* 05/28/2019 Active Zofran ODT 4 MG Tablet Disintegrating Oral *Reorder from Gift Card Combo for eRx and Interaction Alerts* 05/28/2019 Active Immunizations Vaccine Route Administration Date Status Comme nts Influenza virus vaccine, quadrivalent (IIV4), split virus, 0.25 mL dosage Unknown 07/31/2018 Administered Influenza, seasonal, injecta ble, preservative free, 3 yrs and above Unknown 08/19/2018 Administered Novel [id number], preservative free Unknown 08/24/2018 Administered Pneumococcal conjugate PCV 13 Unknown 12/06/2017 Admini stered Pneumococcal polysaccharide PPV23 Unknown 03/07/2018 Ad ministered Social History Social History Additional Details Category Social Info Options Details Migrated Social History Migrated Social History Alcohol Intake: Occasional 09/07/2020,Tobacco Years: Never smoker 09/07/2020 Plan Of Treatment No Information Medical (General) History Surgical History Surgery Date(Month/Year) Partial removal of colon [phone]
--- OUTSIDE RECORDS SUMMARY | 2025-07-31 19:40 | XMS_ITS | Clinical Summary ---
Author Organization [facility] Address [address] [place] [address] Care Team Providers Care Compressed Gas Equipment Mechanic Name Role Phone Mack Stein MD Primary Care Provider Allergies No known active allergies Medications rizatriptan (MAXALT) 10 mg Tablet Take 10 mg by mouth every 2 hours as needed . 0 8 Active busPIRone (BUSPAR) 5 mg tablet TK 1 T PO TID 0 9 Active mirtazapine (REMERON) 15 mg tablet Take 15 mg by mouth daily at bedtime. Active buPROPion HCl (WELLBUTRIN SR) 150 mg Sustained Release 12 hour tablet Take 150 mg by mouth 2 times daily. Active diphenoxylate-at ropine (LOMOTIL) 2.5-0.025 mg tablet Take 1-2 Tablets by mouth 4 times daily as needed for Diarrhea/Loose Stools. 240 Tablet 2 0 Active colestipoL (COLESTID) 1 gram tablet 1-4 tabs 30 minutes before eating and at bedtime. Max 16 tabs/day. 480 Tablet 4 0 Active tamsulosin (FLOMAX) 0.4 mg capsule Take 1 Capsule (0.4 mg) by mouth daily at bedtime. 7 Capsule 09/18/2021 7:13 PM AIRPLANE ENGINEER 1 Active HYDROcodone-acet aminophen (NORCO) 5-325 mg tabletIndication s:Right distal ureteral calculus,Uretera l colic Take 1-2 Tablets by mouth every 6 hours as needed for Pain. Max Daily Amount: 8 Tablets 28 Tablet 09/18/2021 7:13 PM AIRPLANE ENGINEER 1 Active diphenoxylate-at ropine 2.5-0.025 mg tablet Take 1 tablet by mouth 4 (four) times a day as needed for diarrhea 120 Tablet 1 09/30/2022 12:04 PM AIRPLANE ENGINEER 2 Active rizatriptan (MAXALT DISTRIBUTION CENTER ASSISTANT) 10 mg Tablet, Rapid Dissolve Dissolve 1 tablet by mouth at onset of headache. If no relief, may repeat 1 tablet in 2 hours. Max of 2 tablets in 24 hours. 10 Tablet 1 07/18/2022 1:02 PM CDT 2 Active cefdinir (OMNICEF) 300 mg capsule Take 1 Capsule (300 mg) by mouth daily. 90 Capsule 09/30/2022 12:04 PM AIRPLANE ENGINEER 2 Active diphenoxylate-at ropine 2.5-0.025 mg tablet Take 1 Tablet by mouth 4 times daily as needed for diarrhea. 120 Tablet 06/16/2022 5:52 PM CDT 2 Active erenumab-aooe (Aimovig Autoinjector) 140 mg/mL Auto-Injector INJECT 140 MG (1 ML) UNDER THE SKIN ONCE MONTHLY 1 mL 3 2 Active rizatriptan (MAXALT DISTRIBUTION CENTER ASSISTANT) 10 mg Tablet, Rapid Dissolve Take 1 tablet at the onset of headache; if no relief, may repeat 1 tablet in 2 hours. Max of 2 tablets/day. 10 Tablet 07/18/2022 12:57 PM CDT 2 Active propranoloL (INDERAL LA) 80 mg Long Acting 24 hour capsule Take 1 Capsule (80 mg) by mouth daily. 30 Capsule 08/03/2022 6:29 PM CDT 2 Active cefdinir (OMNICEF) 300 mg capsule Take 1 capsule by mouth twice daily for 7 days, then take 1 capsule daily for 7 days 21 Capsule 2 Active cefdinir (OMNICEF) 300 mg capsule Take 1 Capsule (300 mg) by mouth 2 times daily. 60 Capsule 3 05/25/2023 6:16 PM CDT 3 Active ofloxacin (OCUFLOX) 0.3 % solution Administer 1 drop in both eyes every 4 hours for 2 days, then administer 1 drop in both eyes every 6 hours for 5 days. 5 mL 11/29/2022 6:49 PM AIRPLANE ENGINEER 3 Active prednisoLONE acetate (Pred Forte) 1 % suspension ADMINISTER 1 DROP IN EACH EYE 4 TIMES DAILY DIRECTED. 5 mL 12/28/2022 11:38 AM AIRPLANE ENGINEER 3 Active diphenoxylate-at ropine 2.5 mg-0.025 mg tablet Take 1 Tablet by mouth 4 times daily as needed for diarrhea. 120 Tablet 5 05/25/2023 6:16 PM CDT 3 Active triamcinolone acetonide (KENALOG) 0.1 % Ointment APPLY TO AFFECTED AREA(S) TWICE DAILY FOR 14 DAYS. 454 Gram 06/26/2023 5:10 PM CDT 3 Active diphenoxylate-at ropine 2.5 mg-0.025 mg tablet Take 1 Tablet by mouth 4 times daily as needed for diarrhea. 120 Tablet 2 10/09/2023 11:38 AM AIRPLANE ENGINEER 3 Active cefdinir (OMNICEF) 300 mg capsule Take 1 Capsule (300 mg) by mouth 2 times daily. 60 Capsule 3 11/07/2024 5:05 PM AIRPLANE ENGINEER 4 Active diphenoxylate-at ropine 2.5 mg-0.025 mg tablet Take 1 Tablet by mouth 4 times daily as needed. 120 Tablet 08/04/2024 6:11 PM CDT 4 Active colestipoL (COLESTID) 1 gram tablet Take 1-4 tablets by mouth 30 minutes before eating (with meals) and at bedtime. (Max 16 tablets/day). 1440 Tablet 11/07/2024 5:05 PM AIRPLANE ENGINEER 4 Active cefdinir (OMNICEF) 300 mg capsule Take 1 capsule (300 mg total) by mouth 2 (two) times a day 60 Capsule 3 06/30/2025 9:27 AM CDT 5 Active colestipoL (COLESTID) 1 gram tablet Take 1-4 tablets by mouth 30 minutes before eating (with meals) and at bedtime. (Max 16 tablets/day). 1440 Tablet 2 02/17/2025 5:57 PM CDT 5 Active pregabalin (LYRICA) 25 mg Capsule Take 1 capsule (25 mg total) by mouth daily for 7 days, THEN 1 capsule (25 mg total) 2 (two) times a day for 7 days, THEN 2 capsules (50 mg total) 2 (two) times a day for 7 days, THEN 3 capsules (75 mg total) 2 (two) times a day. 125 Capsule 3 05/07/2025 5:18 PM CDT 5 Active gabapentin (NEURONTIN) 100 mg capsule Take 1 capsule (100 mg total) by mouth 3 (three) times a day for 7 days 21 Capsule 01/13/2025 12:35 PM CDT 5 Active HYDROcodone-acet aminophen (NORCO) 5-325 mg tablet Take 1 tablet by mouth every 6 (six) hours as needed for pain for up to 10 doses 10 Tablet 01/13/2025 12:35 PM CDT 5 Active valACYclovir (VALTREX) 1 gram tablet Take 1 tablet (1,000 mg total) by mouth 3 (three) times a day for 7 days 21 Tablet 01/13/2025 12:35 PM CDT 5 Active ketorolac tromethamine (TORADOL) 10 mg tablet Take 1 tablet (10 mg total) by mouth every 6 (six) hours as needed for pain 20 Tablet 01/13/2025 12:35 PM CDT 5 Active cyclobenzaprine (FLEXERIL) 10 mg tablet Take 1 Tablet (10 mg) by mouth 3 times daily as needed for muscle spasm. 10 Tablet 01/19/2025 6:48 PM CDT 5 Active diphenoxylate-at ropine 2.5 mg-0.025 mg tablet Take 1 tablet by mouth 4 (four) times a day as needed for diarrhea 120 Tablet 5 06/30/2025 9:27 AM CDT 5 Active peg 3350-electrolyte s (GOLYTELY) 236-22.74-6.74 -5.86 gram Recon Soln Take 4,000 mL by mouth once for 1 dose. Please follow prep instructions given by the GI Department 4000 mL 06/30/2025 9:27 AM CDT 5 Active pregabalin (LYRICA) 75 mg Capsule Take 1 Capsule (75 mg) by mouth 2 times daily. 60 Capsule 5 Active traMADol (ULTRAM) 50 mg tablet Take 1 Tablet (50 mg) by mouth every 6 hours. 120 Tablet 07/30/2025 9:36 AM CDT 5 Active Active Problems Problem Noted Date Diagnosed Date Moderate protein-calorie malnutrition 01/17/2019 Ileostomy status 11/07/2018 UC (ulcerative colitis) 11/07/2017 Iron deficiency anemia due to chronic blood loss 11/07/2017 Encounters Date Type Department Care Team Description 07/07/2025 External Device Data [facility] ABSTRACTION Provider, Abstract 06/23/2025 External Device Data [facility] ABSTRACTION Provider, Abstract from Last 3 Months Immunizations Immunization Administration Dates Next Due Influenza Seasonal Unspecified Formulation IM Family History Medical History Relation Name Comments Other Brother kidney stones SLE Father Heart Disease Maternal Grandfather Breast Cancer Maternal Grandmother Arthritis-rheumatoid Mother Heart Disease Paternal Grandfather Heart Disease Paternal Grandmother Relation Name Status Comments Brother Alive Father Maternal Grandfather Maternal Grandmother Mother Alive Paternal Grandfather Paternal Grandmother Social History Tobacco Use Types Packs/Day Years Used Date Smoking Tobacco: Never Smokeless Tobacco: Never Alcohol Use Standard Drinks/Week Comments Yes 0 (1 standard drink = 0.6 oz pur e alcohol) occasional 1x/month Sex and Gender Information Value Date Recorded Sex Assigned at Not on file Legal Sex Male 4:14 PM AIRPLANE ENGINEER Gender Identity Not on file Sexual Orientation Not on file Occupation Industry Job Start Date Job End Date Grad [employer] Not on file Not on file Not on file Last Filed Vital Signs Vital Sign Reading Time Taken Comments Blood Pressure 129/88 11/08/2021 6:19 PM AIRPLANE ENGINEER Pulse 98 11/08/2021 6:19 PM AIRPLANE ENGINEER Temperature 36.4 C (97.5 F) 11/08/2021 6:19 PM AIRPLANE ENGINEER Respiratory Rate 18 09/18/2021 6:16 PM AIRPLANE ENGINEER Oxygen Saturation 98% 11/08/2021 6:19 PM AIRPLANE ENGINEER Inhaled Oxygen Concentration - - Weight 86.2 kg (190 lb) 09/18/2021 2:19 PM AIRPLANE ENGINEER Height 188 cm (6' 2) 09/18/2021 2:19 PM AIRPLANE ENGINEER Body Mass Index 24.39 09/18/2021 2:19 PM AIRPLANE ENGINEER Plan of Treatment Health Maintenance Due Date Last Done Comments HPV VACCINES (1 - 3-dose SCD M series) 2014 INFLUENZA VACCINE (#1) 2025 8, 08/19/2018, 05/02/2017 COVID-19 Vaccine (2 - 2024-2 6 season) 2025 08/30/2021 DTAP/TDAP/TD VACCINES (2 - T d or Tdap) 03/17/2030 03/17/2020 HEPATITIS B VACCINES Completed 03/25/1997, 12/10/1996, 10/15/1996 Insurance RX [employer] (INTERNAL) [facility] [employer] Express Advance Directives For more information, please contact: [phone] * Full Code (Latest Code Status on File) Date Activated Date Inactivated Comments 04/02/2019 5:57 PM 04/04/2019 6:41 PM * Full Code Date Activated Date Inactivated Comments 04/02/2019 4:24 PM 04/02/2019 5:57 PM * Full Code Date Activated Date Inactivated Comments 04/02/2019 10:41 AM 04/02/2019 4:23 PM * Full Code Date Activated Date Inactivated Comments 01/08/2019 5:54 PM 01/21/2019 8:40 PM * Full Code Date Activated Date Inactivated Comments 01/08/2019 7:52 AM 01/08/2019 5:54 PM Care Teams Compressed Gas Equipment Mechanic Relationship Specialty Start Date End Date Mack Stein MD [address] [place] [address] PCP - General Family Practice 11/07/17
--- OUTSIDE RECORDS SUMMARY | 2025-07-31 19:40 | XMS_ITS | Clinical Summary ---
Author Organization [facility] Address [address] [place] [address] Care Team Providers Care Gem Carver Name Role Phone Mack Stein MD Primary Care Provider [phone] Source Comments [facility],non-owned Affiliates and Associated Physician Practices is amultiple site organization consisting of ambulatory clinics and hospital sitesin [place], [place], [place] and [place]. This disclosure is being madepursuant to the Care Everywhere program and may not contain all information available regarding this patient. Last updated 18.[facility] Allergies No known active allergies Medications * Be aware that medications may not be up to date on this document. Alwaysverify current medications with the patient. mesalamine EC (LIALDA) 1.2 G tablet Take 1,200 mg by mouth Active vedolizumab (ENTYVIO) injection Active tofacitinib citrate (XELJANZ) 5 MG tablet 07/29/2018 Active Immunizations Immunization Administration Dates Next Due INFLUENZA VACCINE, QUADR. (F LUZONE; FLULAVAL; FLUARIX; AFLURIA QUADRIVALENT; 6MO+), 0.5 ML (IIV4) 08/24/2018 Social History Tobacco Use Types Packs/Day Years Used Date Smoking Tobacco: Never Assessed Sex and Gender Information Value Date Recorded Sex Assigned at Not on file Legal Sex Male 5:36 PM DIRECTOR ORACLE RETAIL Gender Identity Not on file Sexual Orientation Not on file Plan of Treatment Health Maintenance Due Date Last Done Comments HIV SCREENING 2002 HEPATITIS C SCREENING 04/22/2005 DTAP/TDAP/TD VACCINES (1 - Tdap) 2006 HEPATITIS B VACCINE (1 of 3 - 19+ 3-dose series) 2006 HPV VACCINE (1 - 3-dose SCDM series) 2014 DEPRESSION SCREENING 11/05/2024 COVID-19 VACCINE (1 - 2023-2 5 season) 2025 INFLUENZA VACCINE (#1) 2025 08/24/2018 ZOSTER VACCINE (1 of 2) 2037 HIB VACCINE Aged Out No longer eligi ble based on patient's age to complete this topic MENINGOCOCCAL (Group B) VACC INE SHARED DECISION-MAKING Aged Out No longer eligibl e based on patient's age to complete this topic MENINGOCOCCAL GROUPS A/C/Y/W VACCINE Aged Out No longer eligible b ased on patient's age to complete this topic PNEUMOCOCCAL VACCINE Aged Out No long er eligible based on patient's age to complete [place] [address] [facility] [place] Address: [facility] [id number] [place] [address] Care Teams Gem Carver Relationship Specialty Start Date End Date Mack Stein MD [address] [place] [address] PCP - General 09/16/09
--- OUTSIDE RECORDS SUMMARY | 2025-07-31 19:40 | XMS_ITS | Encounter Summary ---
Author Organization [facility] Address [address] [place] [address] Care Team Providers Care Night Baker Name Role Phone Mack Stein MD Primary Care Provider [phone] Encounter Details Date Type Department Care Team (Late st Contact Info) Description 01/23/2019 Telephone [facility] [address] [place] [address] [phone] Mellisa Esposito, RN [address] [place] [address] Social History Tobacco Use Types Packs/Day Years Used Date Smoking Tobacco: Never Smokeless Tobacco: Never Alcohol Use Standard Drinks/Week Comments Yes 0 (1 standard drink = 0.6 oz pur e alcohol) occasional 1x/month Sex and Gender Information Value Date Recorded Sex Assigned at Not on file Legal Sex Male 4:14 PM INSTRUCTOR BALLROOM DANCING Gender Identity Not on file Sexual Orientation Not on file Occupation Industry Job Start Date Job End Date Grad [employer] Not on file Not on file Not on file documented as of this encounter Plan of Treatment Not on file documented as of this encounter Visit Diagnoses Not on filedocumented in this encounter Care Teams Night Baker Relationship Specialty Start Date End Date Mack Stein MD [address] [place] [id number] PCP - General Family Practice 11/07/17 documented as of this encounter
--- OUTSIDE RECORDS SUMMARY | 2025-07-31 19:40 | XMS_ITS | Clinical Summary ---
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 (Max 16 tablets/day). 1440 tablet 2 5 Active gabapentin (NEURONTIN) 100 mg capsule Take 1 capsule (100 mg total) by mouth 3 (three) times a day for 7 days 21 capsule 5 Active Additional Information Patient not taking.Reported on 07/29/2025 HYDROcodone-acet aminophen (NORCO) 5-325 mg per tabletIndication s:Pain Take 1 tablet by mouth every 6 (six) hours as needed for pain for up to 10 doses 10 tablet 5 Active Additional Information Patient not taking.Reported on 07/29/2025 ketorolac (TORADOL) 10 mg tablet Take 1 tablet (10 mg total) by mouth every 6 (six) hours as needed for pain 20 tablet 5 Active Additional Information Patient not taking.Reported on 07/29/2025 diphenoxylate-at ropine (LOMOTIL) 2.5-0.025 mg per tabletIndication s:diarrhea Take 1 tablet by mouth 4 (four) times a day as needed for diarrhea 120 tablet 5 5 Active pregabalin (LYRICA) 75 mg capsule Take 1 capsule (75 mg total) by mouth 2 (two) times a day 60 capsule 5 5 12/27/19 26 Active Additional Information Patient not taking.Reported on 07/29/2025 polyethylene glycol 236-22.74-6.74 -5.86 gram solution 5 Active traMADoL (ULTRAM) 50 mg tablet Take 1 tablet (50 mg total) by mouth every 6 (six) hours 120 tablet 5 08/28/20 25 Active Active Problems Problem Noted Date Diagnosed Date Chronic ulcerative colitis with complication Chronic diarrhea 06/24/2024 Assessment & Plan (12/23/2024 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 He had no response to duloxetine and self-discontinued this. Also had no response to nortriptyline in the past. Last pouchoscopy 07/2022 with friability of rectal cuff. - I would like to re-evaluate his pouch. We will reschedule pouchoscopy with me. While his symptoms seem more like visceral hypersensitivity of the pouch, I want to rule out active pouchitis, cuffitis, pouch stricture, or Crohn's like disease of the pouch. Assessment & Plan (06/24/2024 4:42 PM CDT): Continues to have chronic diarrhea, a sensation that he cannot completely empty his pouch, and an overall increased awareness/sensitivity of his pouch. He had no response to duloxetine and self-discontinued this. Also had no response to nortriptyline in the past. Last pouchoscopy 07/2022 with friability of rectal cuff. - I would like to re-evaluate his pouch. We will plan for pouchoscopy with me. While his symptoms seem more like visceral hypersensitivity of the pouch, I want to rule out active pouchitis, cuffitis, pouch stricture, or Crohn's like disease of the pouch. - Advised to increase lomotil to 2 tabs BID and to schedule it rather than taking it reflexively at times. 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 Possible inflammatory arthritis, though also has hx of avascular necrosis. Did not respond to stelara 09/2021 (single dose), MTX, nortiptyline x4 months, or SSZ. Only responded to tramadol & fosamax previously. - Trial of lyrica as above - Chronic joint pain is limiting his ability to exercise. Advised he consider swimming and bike riding, which place less strain on the joints. - Continue to follow with pain management clinic and rheumatology Assessment & Plan (02/26/2024 4:00 PM CDT): Has had chronic pain in hips, kees & wrists, for which he f/w rheumatology and pain management. Possible inflammatory arthritis. But did not respond to stelara 09/2021 (single dose), MTX, nortiptyline x4 months, or SSZ. Only responded to tramadol & fosamax previously. - He is now back on fosamax. Continues to have significant pain but is optimistic about fosamax and the new airbrush painter he sees. - Trial of duloxetine as above, which likely will benefit joint pains as well to some degree. 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 I suspect he has visceral hypersensitivity. No response to nortriptyline or duloxetine previously. - I continue to strongly feel he would benefit from cognitive behavioral therapy. He has had scheduling conflicts with Dr. Spears's office and we will reach out again to see if there are alternate times he can be seen. - He had to cancel the prior pouchoscopy, so we will reschedule this. It is important to rule out an organic etiology to his symptoms. If for instance he has significant pouchitis, I may favor going to a biologic such as vedolizumab. - Trial of lyrica for visceral hypersensitivity. This may also be beneficial for joint pains. - I discussed various other adjunctive interventions for pouch hypersensitivity, which I suspect is driven by his anxiety. Recommended establishing with a therapist, regular exercise, and adding a probiotic to his regimen (data is limited on this). Assessment & Plan (06/24/2024 4:44 PM CDT): His most bothersome GI symptom at this time is the constant sensation of his pouch, which he finds very uncomfortable. I still suspect he has visceral hypersensitivity, but he has not responded to nortriptyline or duloxetine. - I strongly feel he would benefit from cognitive behavioral therapy. He has had scheduling conflicts with Dr. Spears's office and we will reach out to see if there are alternate times he can be seen. He will also try to work on his schedule to be more flexible. - Plan for pouchoscopy as above - Consider a different neuromodulator in the future, such as lyrica, mirtazapine, or amitriptyline if pouchoscopy is unrevealing. - Can formally discontinue duloxetine at this point Assessment & Plan (02/26/2024 3:58 PM CDT): His most bothersome GI symptom at this time is the constant sensation of his pouch, which he finds very uncomfortable. I suspect he has visceral hypersensitivity, which may be heightened in the setting of his significant anxiety. - We will try duloxetine 30 mg x1 week, then 60 mg daily afterwards for both anxiety and visceral hypersensivity. Advised that this can take 2-3 months to have full effect and to be patient with it. I do suspect this will benefit him greatly. - We will also refer him to Dr. Spears for congitive behavioral therapy, which I suspect will be helpful Osteopenia 02/26/2024 Assessment & Plan (02/26/2024 4:01 PM CDT): Cont w/ fosamax, vitamin D and calcium Anxiety 02/26/2024 Assessment & Plan (02/26/2024 4:03 PM CDT): This is a significant issue in his life. 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 Secondary to vomiting and diarrhea. Continue IV fluids. Lactic acidosis 05/17/2021 Assessment & Plan (05/17/2021 2:02 AM CDT): Likely secondary to dehydration. Resolved with IV fluids. 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 Pouchoscopy 05/2021 with friability throughout pouch body, afferent limb, and rectal cuff. Pouchoscopy 07/2022 primarily with friability at rectal cuff. BM's currently are at baseline. - Continue with cefdinir once daily, colestid and lomotil - It has been found helfpul to rotate his antibiotics periodically in the past. - Repeat pouchoscopy as above - Discussed pouch takedown as a possibility but he strongly prefers to keep his pouch Assessment & Plan (06/24/2024 4:46 PM CDT): Has had evidence of both pouchitis & cuffitis on prior pouchoscopies. Pouchoscopy 05/2021 with friability throughout pouch body, afferent limb, and rectal cuff. Pouchoscopy 07/2022 primarily with friability at rectal cuff. BM's currently are at baseline. - Continue with cefdinir once daily, colestid 1 tab BID and increase lomotil to 2 tabs BID - It has been found helfpul to rotate his antibiotics periodically in the past. - Repeat pouchoscopy Assessment & Plan (02/26/2024 3:55 PM CDT): Has had evidence of both pouchitis & cuffitis on prior pouchoscopies. Pouchoscopy 05/2021 with friability throughout pouch body, afferent limb, and rectal cuff. Pouchoscopy 07/2022 primarily with friability at rectal cuff. BM's currently are at baseline. - Continue with cefdinir once daily, colestid 1 tab BID and lomotil 1 tab BID - It has been found helfpul to rotate his antibiotics periodically in the past. - Consider repeat pouchoscopy 07/2023 Assessment & Plan (05/17/2021 2:03 AM CDT): Suspected. Continue Flagyl. GI has seen patient. Continue supportive care. Will add p.r.n. Imodium and Bentyl as patient states the Bentyl helped with his abdominal cramps in the ER. Hyponatremia 05/17/2021 Assessment & Plan (05/17/2021 2:09 AM CDT): Likely secondary to dehydration. Continue with IV fluids JACKY (acute kidney injury) 05/16/2021 Assessment & Plan (05/17/2021 2:03 AM CDT): Versus acute on chronic. No recent baseline creatinine however in 2019 it was 1.01. Most likely prerenal due to vomiting and diarrhea. Continue with IV fluids. Hold all nephrotoxins. Will continue to monitor. Gastroenteritis 05/16/2021 Overview (05/17/2021): Added automatically from request for surgery [id number] Moderate protein-calorie malnutrition 01/17/2019 Encounter for fertility preservation counseling 12/04/2018 Ileostomy status 11/07/2018 Mild chronic ulcerative colitis 03/28/2018 Low vitamin D level 12/10/2017 Requires hepatitis B vaccination 12/10/2017 Long-term use of immunosuppressant medication Iron deficiency anemia due to chronic blood loss 11/07/2017 UC (ulcerative colitis) 11/07/2017 Assessment & Plan (06/24/2024 4:44 PM CDT): Dx with UC in 2009. Progressed through 5-ASA's, humira (1ary nonresponse), Entyvio (1ary nonresponse), xeljanz (1ary nonresponse) and underwent total total proctocoloectomy with 3-stage J-pouch . - Plan as above Assessment & Plan (02/26/2024 4:01 PM CDT): Dx with UC in 2009. Progressed through 5-ASA's, humira (1ary nonresponse), Entyvio (1ary nonresponse), xeljanz (1ary nonresponse) and underwent total total proctocoloectomy with 3-stage J-pouch . - Plan as above Assessment & Plan (05/17/2021 2:02 AM CDT): Status post total colectomy. Patient is not taking any medications. He only takes as needed Lomotil and psyllium fiber Knee pain 11/18/2012 Arthralgia of hip 08/15/2012 Arthralgia of wrist 08/12/2012 Ganglion cyst 08/09/2012 Encounters Date Type Department Care Team Description 07/29/2025 4:00 PM CDT - 07/29/2025 11:59 PM CDT Hospital Encounter [facility] at the [address] [place] [id number] Judie Stein MD PhD Chronic pain of left knee (Primary Dx); Polyarthralgia; Other chronic pain Discharge Disposition: Discharge to home or self care 07/21/2025 11:00 AM CDT Therapy [facility] Medicine Physical Therapy [address] [place] [address] Floor [address] [place] [address] Carin Landry DPT Pelvic floor dysfunction (Primary Dx) 07/10/2025 11:00 AM CDT Therapy [facility] Physical Therapy [address] [place] [address] Floor [address] [place] [phone] Carin Landry DPT Pelvic floor dysfunction (Primary Dx) 07/10/2025 Orders Only [facility] Gastroenterology [address] [place] [address] [place] [address] Cleopatra Severino RN Chronic ulcerative colitis with complication, unspecified location (HCC) (Primary Dx); Pouchitis (HCC); Visceral hypersensitivity syndrome 07/09/2025 Results Follow-Up [facility] Medicine Gastroenterology [address] [place] [address] Medical Office Building [address] [place] [phone] Louis Perry MD Surgical pathology 07/08/2025 10:45 AM CDT - 07/08/2025 11:15 AM CDT Surgery [facility] [address] [place] [address] Katty Barr MD POUCHOSCOPY BIOPSY 07/08/2025 10:31 AM CDT Anesthesia Event [facility] [address] [place] [address] Cayla Hua DO Balassi, Joseph Daniel, BHAVNA 07/08/2025 9:53 AM CDT - 07/08/2025 11:44 AM CDT Hospital Encounter [facility] [address] [place] [address] Louis Perry MD Huff-Hardy, Kayci Renee, MD Chronic ulcerative colitis with complication, unspecified location (HCC) Discharge Disposition: Discharge to home or self care 06/30/2025 Orders Only [facility] Medicine Gastroenterology [address] [facility] [address] [place] [address] [place] [address] Cleopatra Severino RN 06/23/2025 Telephone [facility] Gastroenterology [address] [facility] [address]th [place] [address] [place] [address] Carolyn Jacobs GI Pre Procedure Assessment 06/23/2025 Orders Only [facility] Medicine Gastroenterology [address] [facility] [address]th [place] [address] [place] [address] Carolyn Jacobs 06/22/2025 Orders Only [facility] [address] [facility] [address] [place] [address] Judie Stein MD PhD Pelvic floor weakness, male (Primary Dx) 06/19/2025 11:15 AM CDT Therapy [facility] Physical Therapy [address] [place] [phone] Yajaira Davis, DPT Polyarthralgia (Primary Dx); Right wrist pain; Left hip pain; Chronic left shoulder pain; Chronic pain of left knee 05/28/2025 11:30 AM CDT Therapy [facility] Physical Therapy [address] [place] [address] [place] [phone] Yajaira Davis, DPT Polyarthralgia (Primary Dx); Right wrist pain; Left hip pain; Chronic left shoulder pain; Chronic pain of left knee 05/19/2025 2:00 PM CDT Therapy [facility] Physical Therapy [address] [place] [address] [place] [phone] Carin Landry, DPT Pelvic floor dysfunction 05/19/2025 Plan of Care Documentation [facility] Physical Therapy [address] [place] [address] [place] [phone] from Last 3 Months Immunizations Immunization Administration Dates Next Due COVID-19 mRNA (PFIZER) 0.3 m L (30 mcg) vaccine (12 years and up) 09/02/2024 Hep A, Adult 05/02/2017 Hep B, Adolescent or Pediatric 03/25/1997,1996,10/15/1996 Influenza, Quadrivalent, Spl it, Intramuscular 05/02/2017 Influenza, Quadrivalent, Spl it, Preservative Free, Intramuscular 08/24/2018 Influenza, Trivalent, Cell C ulture-based MDCK, Preservative Free, Antibiotic Free, Intramuscular 09/02/2024 Influenza, Trivalent, IM (MDV) 08/19/2018 Pfizer SARS-CoV-2 Monovalent Vaccination (12+ Yrs) PURPLE 08/30/2021 Pneumococcal Conjugate PCV 13 12/06/2017 Pneumococcal Polysaccharide PPV23 03/07/2018 Tdap 03/17/2020 Surgical History Surgery Date Site/Laterality Comments LAPAROSCOPIC ASSISSTED TOTAL COLECTOMY W/ J-POUCH 11/05/2017 - 11/04/2018 3 stage ILEOSTOMY CLOSURE 11/05/2018 - 11/04/2019 COLON SURGERY proctocolectomy + j-pouch Medical History Medical History Date Comments Peptic ulcer Anemia Anxiety and depression Migraines Ulcerative colitis, chronic (HCC) Avascular necrosis (HCC) Chronic left shoulder pain Autoimmune disease Family History Medical History Relation Name Comments Anxiety disorder Brother Depression Brother Hypertension Brother Kidney disease Brother Hypertension Father Tripp Family history of hypertension - (Added by TW Conv)/Family history of hypertension - (Added by TW Conv) Lupus Father Tripp Anxiety disorder Mother Wai Arthritis Mother Wai Chronic Pain Mother Wai Depression Mother Wai Hypertension Mother Wai Cancer Other 1 Family history of Cancer; Coronary artery disease Other 2 Fami ly history of Coronary artery disease; Hypertension Other 3 Family history of Hypertension; Osteoarthritis Other 4 Family histor y of Osteoarthritis; Relation Name Status Comments Brother Father Tripp Mother Wai Alive Other 1 Other 2 Other 3 Other 4 Social History Tobacco Use Types Packs/Day Years [...] on file Legal Sex Male 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 Gender Identity Not on file Sexual Orientation Not on file 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 Not on file Not on file Not on file Obstetrics History Last Filed Vital Signs Vital Sign Reading [...] Mass Index 25.04 07/29/2025 4:06 PM CDT Plan of Treatment Health Maintenance Due Date Last Done Comments Depression Screening 1987 Varicella Vaccines (1 of 2 - 13+ 2-dose series) 2000 Regular Well Visit/Exam 18-64 2005 HPV Vaccines (1 - 3-dose SCDM series) 2014 Influenza Vaccine (#1) 2025 4, 08/24/2018, 08/19/2018, Additional history exists DTaP/Tdap/Td Vaccine (2 - Td or Tdap) 03/17/2030 03/17/2020 Pneumococcal vaccine <65 Aged Out 03/07/2018, 02/11/2017 No longer eligible based on patient's age to complete this topic Hepatitis B Screening Completed 08/05/2021 , 03/25/1997, 12/10/1996, Additional history exists Hepatitis C Screening Completed 08/05/2021, 019 Covid-19 Vaccine Completed 09/02/2024, , 11/30/2020, Additional history exists Goals Goal Patient Goal Type Associated Problems [...] lifestyle strategies and compensatory methods as needed Procedures Procedure Name Priority Date/Time Associated Diagnosis Comments TARGET OPIOID SCREEN BY PROFESSIONAL ADVISOR Routine 07/29/2025 5:15 PM CDT DRUGS OF ABUSE SCREEN, URINE WITH REFLEX CONFIRMATION Routine 07/29/2025 5:15 PM CDT SURGICAL PATHOLOGY Routine 07/08/2025 10 :48 AM CDT Chronic ulcerative colitis with complication, unspecified location (HCC) POUCHOSCOPY BIOPSY 07/08/2025 10 :36 AM CDT Chronic ulcerative colitis with complication, unspecified location (HCC) POUCHOSCOPY 07/08/2025 10:20 AM CDT HEPATITIS C ANTIBODY Routine 08/05/2021 9:37 AM CDT Multiple joint pain Other ulcerative colitis with other complication (HCC) from Last 3 Months or Most Recently Relevant to Health Maintenance Results * Targeted Opioid Screen, Ur (07/29/2025 5:15 PM CDT) Pain mgt 6-Acetylmorphine, Ur Not Detected CutOff 10 ng/mL Pain mgt Buprenorphine, Ur Not Detected CutOff 5 ng/mL [facility] Pain mgt Buprenorphine metabolite (Norbuprenorphine), Ur Not Detected CutOff 5 ng/mL [facility] Pain mgt Codeine, Ur Not Detected CutOff 25 ng/mL [facility] Pain mgt Hydrocodone, Ur Not Detected CutOff 25 ng/mL [facility] Pain mgt Hydromorphone, Ur Not Detected CutOff 25 ng/mL [facility] Pain mgt Methadone, Ur Not Detected CutOff 25 ng/mL [facility] Pain mgt Methadone Metabolite (EDDP), Ur Not Detected CutOff 25 ng/[facility] Morphine, Ur Not Detected CutOff 25 ng/mL [facility] Pain mgt Oxycodone, Ur Not Detected CutOff 25 ng/mL [facility] Pain mgt Oxymorphone, Ur Not Detected CutOff 25 ng/mL [facility] Pain mgt Tapentadol, Ur Not Detected CutOff 25 ng/mL [facility] Pain mgt Tramadol, Ur Not Detected CutOff 25 ng/mL [facility] Pain mgt Tramadol metabolite (O-desmethyltramado l), Ur Not Detected CutOff 25 ng/mL [facility] Comment: Interpretive Data This test only [...] developed and its performance characteristics determined by [facility]. It has not been cleared or approved by the U.S. Food and Drug Administration. Current interpretive data was last revised 19. Pain mgt Naloxone, ur Not Detected cutoff 20 ng/ml [facility] Urine 07/29/2025 5:15 PM CDT 07/29/2025 7:32 PM CDT Judie Stein MD PhD LAB URINE ORDERABLES F inal Result [facility] Department [place] [address] * Drugs of Abuse Screen, Urine with Reflex Confirmation (07/29/2025 5:15 PM CDT) [facility] Amphetamine, ur Not Detected CutOff 500ng/mL Comment: Interpretive Data - Amphetamines: Samples containing greater than 500 ng/mL d-methamphetamine or other cross-reacting amphetamine compounds are reported as positive. Amphetamine immunoassays are subject to significant false positive rates due to cross-reactivity of non-amphetamine drugs. Confirmatory testing required for definitive results. Current Interpretive Data was last reviewed 2023. Barbiturates, ur Not Detected CutOff 200ng/mL [facility] Comment: Interpretive Data - Barbiturates: Samples containing greater than 200 ng/mL secobarbital or other cross-reacting barbiturate compounds are reported as positive. False positive and false negative results are possible. Confirmatory testing required for definitive results. Current Interpretive Data was last reviewed 2023. Benzodiazepines, ur Not Detected CutOff 100ng/mL [facility] Comment: Interpretive Data - Benzodiazepines: Samples containing greater than 100 ng/mL nordiazepam or other cross-reacting compounds are reported as positive. False positive and false negative results are possible. Confirmatory testing required for definitive results. Current Interpretive Data was last reviewed 2023. Cannabinoids, ur Not Detected CutOff 50 ng/mL [facility] Comment: Interpretive Data - Cannabinoids: Samples containing greater than 50 ng/mL delta-9 THC -COOH or other cross- reacting compounds are reported as positive. False positive and false negative results are possible. Confirmatory testing required for definitive results. Current Interpretive Data was last reviewed 2023. Cocaine, ur Not Detected CutOff 150ng/mL [facility] Comment: Interpretive Data - Cocaine: Samples containing greater than 150 ng/mL benzoylecgonine or other cross- reacting compounds are reported as positive. False positive and false negative results are possible. Confirmatory testing required for definitive results. Current Interpretive Data was last reviewed 2023. Fentanyl, Ur Not Detected CutOff 5 ng/mL [facility] Comment: Interpretive Data - Fentanyl: Samples containing greater than 5 ng/mL norfentanyl, fentanyl, or other cross-reacting fentanyl compounds are reported as positive. False positive and false negative results are possible. Confirmatory testing required for definitive results. Current Interpretive Data was last reviewed 2024. Methadone, ur Not Detected CutOff 300ng/mL [facility] Comment: Interpretive Data - Methadone: Samples containing greater than 300 ng/mL d,l-methadone or other cross-reacting compounds are reported as positive. False positive and false negative results are possible. Confirmatory testing required for definitive results. Current Interpretive Data was last reviewed 2023. Opiates, ur Not Detected CutOff 300ng/mL [facility] Comment: Interpretive Data - Opiates: Samples containing greater than 300 ng/mL morphine or other cross-reacting compounds are reported as positive. False positive and false negative results are possible. Confirmatory testing required for definitive results. Current Interpretive Data was last reviewed 2023. Oxycodone, ur Not Detected CutOff 100ng/mL [facility] Comment: Interpretive Data - Oxycodone: Samples containing greater than 100 ng/mL oxycodone or other cross-reacting compounds are reported as positive. False positive and false negative results are possible. Confirmatory testing required for definitive results. Current Interpretive Data was last reviewed 2023. Phencyclidine, ur Not Detected CutOff 25 ng/mL [facility] Comment: Interpretive Data - Phencyclidine: Samples containing greater than 25 ng/mL phencyclidine or other cross-reacting compounds are reported as positive. False positive and false negative results are possible. Confirmatory testing required for definitive results. Current Interpretive Data was last reviewed 2023. Urine Creatinine 142 mg/dL [facility] Comment: Interpretive Data Urine Creatinine: < 10 mg/dL is extremely dilute = or > 10 but < 20 mg/dL is dilute = or > 20 mg/dL is normal Current Interpretive Data was last revised on 2018. Urine 07/29/2025 5:15 PM CDT 07/29/2025 7:32 PM CDT Narrative [facility] - 07/29/2025 8:38 PM CDT Drug Screening is performed by immunoassay for medical purposes. If positive, confirmation testing will be performed for amphetamines, benzodiazepines, cocaine, fentanyl, methadone, opiates, oxycodone, and phencyclidine. Judie Stein MD PhD LAB URINE ORDERABLES F inal Result [facility] Department [place] [address] * Surgical pathology (07/08/2025 10:48 AM CDT) Tissue (Colon, Biopsy) 07/08/2025 10:48 AM CDT Tissue specimen (specimen) (Colon, Biopsy) 07/08/2025 10:48 AM CDT Narrative PATHOLOGY [facility] - 07/09/2025 12:17 PM CDT EPIC results best viewed via link to PDF [facility] [place] [address] Note to Patients: This report may contain a detailed description of human tissue sent by a health care provider to the laboratory for pathologic evaluation. The content of this report is essential for diagnosis and may provide important critical findings. This information may be unfamiliar to patients to review without a medical professional present. It is advised that the patient review this report in the presence of a health care provider who can answer questions and explain the details. SURGICAL PATHOLOGY REPORT FINAL Patient Name: GRACE JONES Gender: Annette : 1985 (Age: 40) Address: [address] [place], [place] [id number] Hospital #: [id number] Taken:07/08/2025 Received:07/08/2025 Reported: 07/09/2025 Patient Type: [facility] EP SAME Client [facility] Service: Gastro Location: Physician(s): Katty Barr M.D. Mack Jareth Mustafa M.D. Diagnosis: A. Small bowel, pre-pouch, biopsy - Normal ileal mucosa B. Small bowel, pouch body, biopsy - Ileal mucosa with focal acute/active inflammation - Negative for granuloma and dysplasia chelo/07/09/2025 11:25 By this signature, I attest that the above diagnosis is based upon my personal examination of the slides(and/or other material indicated in the diagnosis). Cinthia Leiva MD Report Electronically Reviewed and Signed Out By Cinthia Leiva MD 07/09/2025 12:17:06 Tricia Kathleen M.D. History: The patient is a 40-year-old man with hisotyr of ulcerative colitis, s/p proctocolectomy with IPAA, complicated by pouchitis, presenting for endoscopy for disease activity assessment. Operative procedure: Pouchoscopy with biopsy. Specimen(s) Received: A: Pre pouch biopsies B: Pouch body biopsies Gross Description: Received in two formalin jars labeled with the patient's identifiers. A. Labeled pre pouch biopsies are multiple irregular tissue fragment(s) (measuring 1.4 x 0.3 x 0.1 cm in aggregate. Stained with eosin). Labeled A1. Jar 0. B. Labeled pouch body biopsies are multiple irregular tissue fragment(s) (measuring 1.1 x 0.5 x 0.1 cm in aggregate. Stained with eosin). Labeled B1. Jar 0. cnewho/07/08/2025 13:29 PA(s): BEBO Romano By this signature, I attest that the above diagnosis is based upon my personal examination of the slides(and/or other material). Addenda/Procedures Microscopic slide review and interpretation for this case was performed at [facility], Department of Surgical Pathology, [address] [facility] [place] [id number], [place] [address] CLIA # [id number] The performance characteristics of some immunohistochemical stains, fluorescence in-situ hybridization tests and immunophenotyping by flow cytometry cited in this report (if any) were determined by the Surgical Pathology and Flow Cytometry Departments at [facility] as part of an ongoing automotive quality engineer program and in compliance with federally mandated regulations drawn from the Clinical Laboratory Improvement Act of 1988 (CLIA '88). Some of these tests rely on the use of analyte specific reagents and are subject to specific labeling requirements by the US Food and Drug Administration. Such diagnostic tests may only be performed in a facility that is certified by the Department of Health and Human Services as a high complexity laboratory under CLIA '88. The FDA has determined that such clearance or approval is not necessary. This test is used for clinical purposes. It should not be regarded as investigational or for research. Nevertheless, federal rules concerning the medical use of analyte specific reagents require that the following disclaimer be attached to the report: This test was developed and its performance characteristics determined by the Surgical Pathology and Flow Cytometry Departments of [facility]. It has not been cleared or approved by the U. S. Food and Drug Administration. IMAGES AND SCANNED DOCUMENTS, IF INCLUDED, ONLY VIEWABLE IN PDF VERSION OF REPORT us Katty Barr MD LAB PATHOLOGY ORDERABL ES Final Result PATHOLOGY [facility] [phone] * Pouchoscopy (07/08/2025 10:20 AM CDT) Anatomical Region Laterality Modality Other Narrative Procedure Note Katty Barr MD - 07/08/2025 10:20 AM CDT ENDOSCOPY LAB Patient Name: Grace Jones Procedure Date: 07/08/2025 10:20 AM Date of : 1985 Admit Type: Outpatient Age: 40 Gender: Male Attending MD: Katty Barr M.D., Room: [facility] ENDOSCOPY ROOM 02 Note Status: Finalized Procedure: Pouchoscopy Indications: Inflammatory bowel disease Providers: Katty Barr M.D. Referring MD: Mack Stein M.D. Medicines: Propofol per Anesthesia Complications: No immediate complications. Estimated Blood Loss: Estimated blood loss was minimal. Procedure: Pre-Anesthesia Assessment: - Prior to the procedure, a History and Physicalwas performed, and patient medications, allergies and sensitivities were reviewed. The patient'stolerance of previous anesthesia was reviewed. - The risks and benefits of the procedure and the sedation options and risks were discussed with the patient. All questions were answered and informed consent was obtained. - Patient identification and proposed procedurewere verified prior to the procedure by the physician,the nurse, the master technician and the health care technician. The procedure was verified in the procedure room. After obtaining informed consent, the endoscope was passed under direct vision. Throughout theprocedure, the patient's blood pressure, pulse, and oxygen saturations were monitored continuously. The [id number] was introduced through the and advanced to the berny-terminal ileum - ileostomy take down site. . The procedure was performed without difficulty. The patient tolerated the procedurewell. The quality of the bowel preparation was good. Findings: There were 2-3 small aphthous ulcers one at the pouch inlet and oneat the distal pouch near the ileoanal anastomosis. No stigmata of recent bleeding were seen. Biopsies were taken with a cold forceps for histology. The berny-terminal ileum appeared normal. Biopsies were taken with acold forceps for histology. Intact zenon were seen The exam was otherwise without abnormality. Impression: - Aphtha at the pouch inlet. Biopsied. - The examined portion of the ileum was normal. Biopsied. - The examination was otherwise normal. Recommendation: - Discharge patient to home (with escort). - Patient has a contact number available for emergencies. The signs and symptoms of potential delayed complications were discussed with thepatient. Return to normal activities tomorrow. Written discharge instructions were provided to thepatient. - Resume previous diet. - Await pathology results. - Continue present medications. Attending Participation: I personally performed the entire procedure. Electronically signed by Katty Barr MD Katty Barr M.D. 07/08/2025 11:04:35 AM Number of Addenda: 0 Note Initiated On: 07/08/2025 10:20 AM Katty Barr MD ENDOSCOPY PROCEDURES F inal Result * Hepatitis C antibody (08/05/2021 9:37 AM CDT) Hep C Ab Nonreactive Nonreactive [facility] Comment:Antibodies to HCV no t detected. Does NOT exclude the possibility of recent exposure to HCV. Blood 08/05/2021 9:37 AM CDT 08/05/2021 11:07 AM CDT Get Wright MD LAB MICROBI OLOGY - GENERAL ORDERABLES Edited Result - Final Performing Organization Address City/State/[facility] Co de Phone Number [facility] Department [place] [address] from Last 3 Months or Most Recently Relevant to Health Maintenance Insurance [facility] [facility] [employer] [facility] [employer] [employer] Advance Directives For more information, please contact: [phone] * Full Code (Latest Code Status on File) Date Activated Date Inactivated Comments 07/08/2025 11:33 AM 07/08/2025 3:49 PM * Full Code Date Activated Date Inactivated Comments 07/08/2025 10:04 AM 07/08/2025 11:33 AM * Full Code Date Activated Date Inactivated Comments 08/04/2022 12:19 PM 08/04/2022 6:36 PM * Full Code Date Activated Date Inactivated Comments 05/24/2021 2:12 PM 05/27/2021 7:40 PM * Full Code Date Activated Date Inactivated Comments 05/21/2021 11:31 AM 05/24/2021 2:12 PM Care Teams Rotary Rig Engine Operator Relationship Specialty Start Date End Date Mack Stein MD PCP - General 01/18/12 Louie Islas, [facility] [address] [facility] [address] [place] [address] Physical Therapist Physical Therapy 04/28/22
[2025-07-31 19:56] VITALS: BP 111/85; PULSE 74; RESP 20; TEMP 36.9; O2SAT 95
--- NOTE | 2025-07-31 22:06 | ED.WOUNDLAC ---
HPI - Wound/Laceration General Chief Complaint: Wound/Laceration Stated Complaint: finger laceration Time Seen by Provider: 07/31/25 20:26 Source: patient Mode of arrival: ambulatory Limitations: no limitations History of Present Illness HPI narrative: Patient is a 40-year-old male who presents the ED with report of a laceration to his left 2nd digit. 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 Sustained laceration to L 2nd digit. Denies any other injuries. Denies numbness. Tetanus unknown. Related Data Home Medications ?Medication ?Instructions ?Recorded ?Confirmed ?Last Taken ?Type diphenoxylate-atropine 2.5 1 tablet PO TID 07/27/20 07/01/25 Unknown History mg-0.025 mg tablet (Lomotil) colestipol 1 gram tablet 4 g PO TID 02/22/21 07/01/25 Unknown History Allergies Allergy/AdvReac Type Severity Reaction Status Date / Time No Known Allergies Allergy Verified 07/01/25 07:46 Review of Systems Review of Systems: All systems reviewed & are unremarkable except as noted in HPI. All systems reviewed & are unremarkable except as noted in HPI and below PMFSH Past Medical History Medical History BMI 23.0-23.9, adult BMI 24.0-24.9, adult Surgical History Surgical History S/P proctocolectomy Family History Family History Father Hypertension Lupus Mother Rheumatoid arthritis Sibling No problems noted. 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 HEAD: Normocephalic, atraumatic. RESPIRATORY: Airway patent, respirations nonlabored. CARDIOVASCULAR: Regular rate and rhythm. Radial pulses intact MUSCULOSKELETAL: Moves all extremities. No gross deformities. SKIN: Warm, dry, normal color. 1cm linear laceration to L 2nd digit flexor surface distal phalanx. No active bleeding. Sensation intact. Distal cap refill intact. NEURO: A&O X3. Speech clear. PSYCHIATRIC: Appropriate mood and affect. Normal interaction. Course Vital Signs Vital signs: Vital Signs Temperature 98.4 F 07/31/25 19:56 Pulse Rate 74 07/31/25 19:56 Respiratory Rate 20 07/31/25 19:56 Blood Pressure 111/85 07/31/25 19:56 Pulse Oximetry 95 07/31/25 19:56 Oxygen Delivery Room Air 07/31/25 19:56 Temperature 98.4 F 07/31/25 19:56 Pulse Rate 74 07/31/25 19:56 Respiratory Rate 20 07/31/25 19:56 Blood Pressure 111/85 07/31/25 19:56 Pulse Oximetry 95 07/31/25 19:56 Oxygen Delivery Room Air 07/31/25 19:56 Procedures Laceration Laceration 1: Date: 07/31/25 Time: 22:00 Site: hand (2nd digit) Side (If applicable): left Size (cm): 1 Description: linear Depth: simple, single layer Local Anesthetic: lidocaine 1% Amount of anesthesia used (mL): 3 Pre-repair: wound explored and irrigated ====== Skin Level ====== Skin layer closed with: nylon Size (cm): 5-0 Number of sutures: 2 Technique: simple, interrupted ====== Subcutaneous Layer ====== ====== Muscle Layer ====== ====== Tendon Layer ====== MDM - Wound/Laceration MDM Narrative Medical decision making narrative: X-ray without evidence of fracture or foreign body. Laceration repaired without complications. Tetanus updated in the ED. Patient given wound care instructions, return precautions. Discharged in stable condition. Medical Records Attestation: I reviewed the patient's medical records. Imaging Data Attestation: I personally reviewed and interpreted this imaging study as follows: Radiologist's impression: ITS Impressions Hand X-Ray 07/31/25 20:45 IMPRESSION: 1: NO ACUTE BONE OR JOINT ABNORMALITY IDENTIFIED. Discharge Plan Discharge Clinical Impression: Laceration of left index finger Qualifiers: Encounter type: initial encounter Damage to nail status: without damage Foreign body presence: without foreign body Qualified Code(s): S61.211A - Laceration without foreign body of left index finger without damage to nail, initial encounter Patient Disposition: Home Condition: Stable Instructions: Antibiotic Form, Care For Your Stitches (ED), Laceration (ED) Additional Instructions: Return to the ED or visit an urgent care or your PCP for follow-up and wound check/suture removal in 10 to 14 days. Keep the wound dry for 24 hours. You may remove the bandage after 24 hours and wash with simple soap and water, but do not scrub. Return to the ED if you experience uncontrolled bleeding, fever, chills, pus-like drainage, or redness/swelling/warmth surrounding the wound, as these could be signs of an infection. Patient Language: Kiswahili Prescriptions: No Action diphenoxylate-atropine [Lomotil] 2.5-0.025 mg tablet 1 tablet PO TID Nurtec ODT 75 mg tablet,disintegrating 75 mg PO ONCE PRN (Reason: migraine headache) Qty: 10 0RF Rx Instructions: as a single dose colestipol 1 gram tablet 4 g PO TID Follow-up/Referrals: Mack Stein MD [Primary Care Provider, Family Practice] Time of Disposition: 22:08
[2025-07-31] MEDS: TETANUS,DIPHTHERIA,AC PERTUSSIS ADULT (0.5 ML) BOOSTRIX IM (22:36)
== END 2025-07-31 22:37 | disposition home or self-care (01) ==
PROVIDERS: Emergency Provider Physician Assistant; PCP Family Medicine
DX: S61.211A Laceration without foreign body of left index finger without damage to nail, initial encounter (principal); W28.XXXA Contact with powered lawn mower, initial encounter; Z23 Encounter for immunization
CPT/HCPCS: 12001; 73130; 90471; 90715; 99283